=== PATIENT | male | born 1995 | race Caucasian/White ===

== ENCOUNTER 2017-09-25 16:06 | Emergency (ER) | payer OTHER | END 2017-09-25 22:33 | disposition left against medical advice (07) | LOC: M ED 22:33 | DX: J09.X2 Influenza due to identified novel influenza A virus with other respiratory manifestations (principal); Z87.891 Personal history of nicotine dependence | CPT/HCPCS: 87633 ==

== ENCOUNTER 2020-06-05 22:28 | Emergency (ER) | payer OTHER ==
[~2020-06-05] VITALS: Ht 190.5 cm; Wt 104.5 kg
[~2020-06-05 22:28] MED LIST: ROBI30SU PO; TYLE325T5 PO
[2020-06-05] MEDS ORDERED: ONDANSETRON 4MG/2ML VIAL IV ONE (23:00)
[2020-06-05] MEDS ORDERED: KETOROLAC 30 MG/ML 1ML VIAL IV ONE (23:00)
[2020-06-05] MEDS ORDERED: NS 1,000 ML IV ONE (23:00)
[2020-06-05 23:41] LABS: BASO # 0.1 10^3/uL (0.0-0.2); BASO % 0.5 % (0.0-1.0); EOS # 0.2 10^3/uL (0.0-0.5); EOS % 1.2 % (0.0-3.0); HEMATOCRIT 44.3 % (42.0-52.0); HEMOGLOBIN 14.7 g/dl (13.5-17.5); LYMPH # 1.7 10^3/uL (1.5-5.0); LYMPH % 13.5 % (24.0-44.0); MEAN CORPUSCULAR HEMOGLOBIN 28.5 pg (27.0-33.0); MEAN CORPUSCULAR HGB CONC 33.2 g/dl (32.0-36.5); MEAN CORPUSCULAR VOLUME 85.9 fl (80.0-96.0); MONO # 0.4 10^3/uL (0.0-0.8); MONO % 3.3 % (0.0-5.0); NEUTROPHILS # 10.2 10^3/uL (1.5-8.5); NEUTROPHILS % 81.2 % (36.0-66.0); PLATELET COUNT, AUTOMATED 280 10^3/uL (150-450); RED BLOOD COUNT 5.16 10^6/uL (4.30-6.10); WHITE BLOOD COUNT 12.6 10^3/uL (4.0-10.0)
[2020-06-06 00:03] LABS: BLOOD UREA NITROGEN 10 MG/DL (7-18); CALCIUM LEVEL 8.1 MG/DL (8.5-10.1); CARBON DIOXIDE LEVEL 25 MEQ/L (21-32); CHLORIDE LEVEL 108 MEQ/L (98-107); CREATININE FOR GFR 0.94 MG/DL (0.70-1.30); ETHYL ALCOHOL (ETHANOL) 0.266 % (0.000-0.010); GLOMERULAR FILTRATION RATE > 60.0 (>60); GLUCOSE, FASTING 113 MG/DL (70-100); POTASSIUM SERUM 3.7 MEQ/L (3.5-5.1); SODIUM LEVEL 141 MEQ/L (136-145)
--- NOTE | 2020-06-06 00:33 | REPVR ---
PROCEDURE INFORMATION: Exam: US Scrotum and Artery or Vein of the Abdominal and/or Reproductive Organs, Limited Scrotum Exam date and time: 06/05/2020 12:08 AM Age: 24 years old Clinical indication: Scrotum pain; Additional info: Right testicular pain TECHNIQUE: Imaging protocol: Real-time ultrasound of the scrotum. Real-time duplex ultrasound scan of the arterial or venous flow with moore scale, color Doppler flow and spectral waveform analysis with image documentation. Limited Duplex exam focused of the scrotum. Duplex images required to evaluate for torsion and other vascular conditions. COMPARISON: No relevant prior studies available. FINDINGS: Right testicle: The right testicle measures 5.1 cm x 3.4 cm x 3.3 cm. There are a few microcalcifications in the right testicle. No testicular mass is noted. The color Doppler flow and spectral waveforms in the right testicle are within normal limits without evidence for testicular torsion or orchitis. Left testicle: The left testicle measures 5 cm x 2.2 cm x 3.2 cm. There are a few microcalcifications in the left testicle. No testicular mass is noted. The color Doppler flow and spectral waveforms in the left testicle are within normal limits without evidence for testicular torsion or orchitis. Epididymides: There is no evidence for epididymitis. There is a 3 mm x 3 mm x 2 mm cyst in the head of the right epididymis and a 7 mm x 5 mm x 7 mm cyst in the head of the left epididymis. Scrotum: There is dilation of the veins of the left pampiniform plexus by 3 mm, which can be seen with a left varicocele. However, patient was unable to Valsalva during the examination. No hydrocele is noted. IMPRESSION: 1. No testicular torsion, orchitis, or epididymitis. 2. Dilation of the veins of the left pampiniform plexus by 3 mm, which can be seen with a left varicocele. However, patient was unable to Valsalva during the examination. Electronically signed by: Guevara Grace On 06/06/2020 00:33:38 AM
[2020-06-06 00:40] VITALS: BP 143/66
== END 2020-06-06 01:56 | disposition home or self-care (01) ==
LOC: M ED 22:28
DX: F10.129 Alcohol abuse with intoxication, unspecified (principal); R10.30 Lower abdominal pain, unspecified
CPT/HCPCS: 76870; 80048; 85025; 93976; 96374; 96375; 99284; G0480; J1885; J2405

== ENCOUNTER → 2021-12-13 | Outpatient (CLI) | payer OTHER | LOC: M RAD 07:24 | PROVIDERS: ATTEND Physician Assistant | DX: M54.2 Cervicalgia (principal) ==

== ENCOUNTER 2022-05-29 12:41 | Emergency (ER) | payer OTHER ==
[~2022-05-29] VITALS: Ht 193 cm; Wt 120.9 kg
[2022-05-29 12:44] VITALS: BP 133/82
== END 2022-05-29 15:43 | disposition home or self-care (01) ==
LOC: M ED 12:41
DX: S90.32XA Contusion of left foot, initial encounter (principal); W10.9XXA Fall (on) (from) unspecified stairs and steps, initial encounter; F17.200 Nicotine dependence, unspecified, uncomplicated; F10.10 Alcohol abuse, uncomplicated; Y92.009 Unspecified place in unspecified non-institutional (private) residence as the place of occurrence of the external cause; Y93.K1 Activity, walking an animal; Y99.9 Unspecified external cause status